=== PATIENT | female | born 1975 | race Caucasian/White ===

== ENCOUNTER 2023-12-30 08:00 | Oncology outpatient (recurring) (ONCR) | payer OTHER, SELFPAY ==
[2023-12-20 09:36] VITALS: BP 146/82; PULSE 78; RESP 17; TEMP 37.2; O2SAT 94
[2023-12-20] MEDS: iron sucrose 200 MG in sodium chloride 0.9% (100 ml) 100 ML 220 MG IV (10:06)
[2023-12-20] MEDS: sodium chloride 0.9% 250 ML IV (10:07)
[2023-12-20 10:40] VITALS: BP 128/64; PULSE 63; RESP 16; TEMP 37; O2SAT 93
[2023-12-23] MEDS: iron sucrose 200 MG in sodium chloride 0.9% (100 ml) 100 ML 220 MG IV (08:38)
[2023-12-23 09:14] VITALS: BP 136/75; PULSE 76; RESP 16; TEMP 36.7
[2023-12-25 14:32] VITALS: BP 125/62; PULSE 76; RESP 16; TEMP 36.5; O2SAT 98
[2023-12-25] MEDS: iron sucrose 200 MG in sodium chloride 0.9% (100 ml) 100 ML 220 MG IV (14:50)
[2023-12-25 15:35] VITALS: BP 132/73; PULSE 61; RESP 17; TEMP 36.5; O2SAT 99
[2023-12-27 07:45] VITALS: BP 102/64; PULSE 69; RESP 16; TEMP 37.2; O2SAT 99
[2023-12-27] MEDS: sodium chloride 0.9% 250 ML 75 ML IV (08:11)
[2023-12-27] MEDS: iron sucrose 200 MG in sodium chloride 0.9% (100 ml) 100 ML 220 MG IV (08:12)
[2023-12-27 09:00] VITALS: BP 113/74; PULSE 73; RESP 17; TEMP 36.2; O2SAT 97
[2023-12-30 08:16] VITALS: BP 137/77; PULSE 84; RESP 16; TEMP 36.6; O2SAT 99
[2023-12-30] MEDS: iron sucrose 200 MG in sodium chloride 0.9% (100 ml) 100 ML 220 MG IV (08:43)
[2023-12-30 09:37] VITALS: BP 118/70; PULSE 73; RESP 16; TEMP 36.8; O2SAT 99
== END 2024-01-18 23:55 | disposition home or self-care (01) ==
PROVIDERS: Family Provider Family Medicine; PCP Family Medicine; Visit Provider Family Medicine
DX: Z53.9 Procedure and treatment not carried out, unspecified reason (principal); D50.8 Other iron deficiency anemias; Z79.899 Other long term (current) drug therapy
CPT/HCPCS: 96365; J1756; J7050

== ENCOUNTER 2024-03-12 08:34 | Outpatient (CLI) | payer OTHER, SELFPAY ==
--- NOTE | 2024-03-12 08:41 | CTR_ITS ---
PROCEDURE INFORMATION: Exam: CT Chest With Contrast; Diagnostic Exam date and time: 03/12/2024 9:01 AM Age: 48 years old Clinical indication: Condition or disease; Lung condition and disease; Pulmonary nodule, solitary; Additional info: Lung nodules TECHNIQUE: Imaging protocol: Diagnostic computed tomography of the chest with contrast. Radiation optimization: All CT scans at this facility use at least one of these dose optimization techniques: automated exposure control; mA and/or kV adjustment per patient size (includes targeted exams where dose is matched to clinical indication); or iterative reconstruction. Contrast material: OMNI 350; Contrast volume: 100 ml; Contrast route: INTRAVENOUS (IV); COMPARISON: No relevant prior studies available. RADIATION DOSE METRICS: Total DLP (mGy-cm): 244.36 FINDINGS: Lungs: Unremarkable. No consolidation. No masses. Pleural spaces: Unremarkable. No pneumothorax. No pleural effusion. Heart: Unremarkable. No cardiomegaly. No pericardial effusion. Lymph nodes: Unremarkable. No enlarged lymph nodes. Vasculature: Unremarkable. No aortic aneurysm. Bones/joints: Unremarkable. No acute fracture. Soft tissues: Unremarkable. CT/CT chest w con* [id number] IMPRESSION: No acute findings.
[2024-03-12] MEDS: iohexol 350 mg/mL 500 mL Btl (per mL) IV (09:09)
== END 2024-03-12 08:35 | disposition home or self-care (01) ==
LOC: RAD 08:35
PROVIDERS: Family Provider Family Medicine; PCP Family Medicine; Visit Provider Family Medicine
DX: R91.8 Other nonspecific abnormal finding of lung field (principal)
CPT/HCPCS: 71260